=== PATIENT | male | born 1990 ===

== ENCOUNTER 2018-07-23 19:14 | Emergency (ER) | payer OTHER ==
[~2018-07-23] VITALS: Ht 180.3 cm; Wt 81.6 kg
[2018-07-23] MEDS ORDERED: LAMICTAL100 M1 (19:18)
[2018-07-24] MEDS ORDERED: ZOFRAN ODT4 MG PO ×2 (08:27→08:28)
[2018-07-24] MEDS ORDERED: LAMICTAL ODT50 MG PO (08:27)
== END 2018-07-24 08:54 | disposition home or self-care (01) ==
LOC: ER 19:14
DX: G40.802 Other epilepsy, not intractable, without status epilepticus (principal)